=== PATIENT | female | born 1945 | race Two or more races ===

== ENCOUNTER 2017-07-17 15:38 | Day surgery (SDC) | payer MEDICARE, OTHER ==
[2017-07-17] VITALS (8 sets, daily range): BP systolic 115–168; BP diastolic 61–79; PULSE 72–96; RESP 11–19; Ht 154.9 cm; Wt 54.8 kg
[~2017-07-17] VITALS: Ht 154.9 cm; Wt 54.8 kg
[2017-07-17] MEDS ORDERED: ASPI81TA3 PO (16:21)
[2017-07-17] MEDS ORDERED: ZOLP5TAB PO (16:21)
[2017-07-17] MEDS ORDERED: IPRA12.93 INHALATION (16:21)
[2017-07-17] MEDS ORDERED: LOSA25TA5 PO (16:21)
[2017-07-17] MEDS ORDERED: HYDR25TA6 PO (16:21)
[2017-07-17] MEDS ORDERED: LEVO50TA74 PO (16:21)
[2017-07-17] MEDS ORDERED: TRAM50TA2 PO (16:21)
--- NOTE | 2017-07-17 16:33 | RADRPT ---
PROCEDURE: XR Chest. CLINICAL INDICATION: Preoperative. TECHNIQUE: Single frontal view. COMPARISON: None. FINDINGS: There is mild atelectasis at the lung bases. The lungs are otherwise clear. The heart size is normal. There is calcification in the aorta consistent with atherosclerosis. There is no pleural effusion. There is no pneumothorax. IMPRESSION: 1. Mild atelectasis at the lung bases. 2. Atherosclerosis. RPTAT: QQ .Krish Adorno MD, MD Date Time Electronically viewed and signed by .Krish Adorno MD, on 07/17/2017 16:33 .R/
--- NOTE | 2017-07-17 16:52 | HPN ---
Date/Time of Note Date/Time of Note DATE: 07/17/17 TIME: 16:52 Interval H&P Admission Note Pt. seen H&P reviewed: No system changes HARJEET HALL Jul 17, 2017 16:52
[2017-07-17] MEDS ORDERED: POLYMYXIN/BACITRACIN 1L IRRIG ONE (17:42)
[2017-07-17] MEDS ORDERED: BUPIVACAINE 0.5% (SDV) 30 ML INJ ONE (17:43)
[2017-07-17] MEDS ORDERED: CEFAZOLIN 1 GM INJ ONE (17:45)
[2017-07-17] MEDS ORDERED: PROPOFOL 20 ML ONE (17:45)
[2017-07-17] MEDS ORDERED: PHENYLephrine (100 MCG/ML) 5ML SYG ONE (18:03)
[2017-07-17] MEDS ORDERED: EPHEDrine SULFATE 50 MG/5 ML SYG ONE (18:38)
[2017-07-17] MEDS ORDERED: ONDANSETRON 4 MG INJ ONE (18:38)
[2017-07-17] MEDS ORDERED: METOCLOPRAMIDE 10 MG INJ ONE (18:38)
[2017-07-17] MEDS ORDERED: DEXAMETHASONE 4 MG/ML 1 ML INJ ONE (18:38)
[2017-07-17] MEDS ORDERED: KETOROLAC 30 MG INJ ONE (19:12)
[2017-07-17] MEDS ORDERED: ACETAMINOPHEN 1000MG/100ML IV 100 ML ONE (19:13)
--- NOTE | 2017-07-17 19:19 | OPPN ---
Date/Time of Note Date/Time of Note DATE: 07/17/17 TIME: 19:18 Operative Report Preoperative Diagnosis right small and ring finger proximal phalanx intra-articular fractures at MP joint Postoperative Diagnosis right small and ring finger proximal phalanx intra-articular fractures at MP joint Operation/Procedure Performed open reduction internal fixation right small and ring finger proximal phalanx intra-articular fractures at MP joint Surgeon see signature line music assistant none Anesthesia: general Estimated blood loss: 0 - 10 ml's Transfusion Required none Specimen none Grafts/Implants none Complications none HARJEET HALL Jul 17, 2017 19:19
--- NOTE | 2017-07-17 19:19 | OPPN ---
Date/Time of Note Date/Time of Note DATE: 07/17/17 TIME: 19:18 Operative Report Preoperative Diagnosis right small and ring finger proximal phalanx intra-articular fractures at MP joint Postoperative Diagnosis right small and ring finger proximal phalanx intra-articular fractures at MP joint Operation/Procedure Performed open reduction internal fixation right small and ring finger proximal phalanx intra-articular fractures at MP joint Surgeon see signature line assistant women's tennis coach none Anesthesia: general Estimated blood loss: 0 - 10 ml's Transfusion Required none Specimen none Grafts/Implants none Complications none HARJEET HALL Jul 17, 2017 19:19
--- NOTE | 2017-07-17 19:19 | OPPN ---
Date/Time of Note Date/Time of Note DATE: 07/17/17 TIME: 19:18 Operative Report Preoperative Diagnosis right small and ring finger proximal phalanx intra-articular fractures at MP joint Postoperative Diagnosis right small and ring finger proximal phalanx intra-articular fractures at MP joint Operation/Procedure Performed open reduction internal fixation right small and ring finger proximal phalanx intra-articular fractures at MP joint Surgeon see signature line digital sales assistant none Anesthesia: general Estimated blood loss: 0 - 10 ml's Transfusion Required none Specimen none Grafts/Implants none Complications none HARJEET HALL Jul 17, 2017 19:19
[2017-07-17] MEDS ORDERED: BUPIVACAINE 0.5% 30 ML VIAL INJ ONE (19:22)
[2017-07-17] MEDS ORDERED: EPHEDrine SULFATE 50 MG/5 ML SYG IV PRN (19:30)
[2017-07-17] MEDS ORDERED: morphine (1 MG/ML) 10ML SYRINGE IV PRN ×3 (19:30)
[2017-07-17] MEDS ORDERED: FENTAnyl 50 MCG/ML VIAL IV PRN ×3 (19:30)
[2017-07-17] MEDS ORDERED: LABETALOL HCL 20MG INJ IV PRN (19:30)
[2017-07-17] MEDS ORDERED: METOCLOPRAMIDE 10 MG INJ IV PRN (19:30)
[2017-07-17] MEDS ORDERED: DIPHENHYDRAMINE 50 MG INJ IV PRN (19:30)
[2017-07-17] MEDS ORDERED: MEPERIDINE 25 MG INJ IV PRN (19:30)
[2017-07-17] MEDS ORDERED: ONDANSETRON 4 MG INJ IV PRN (19:30)
[2017-07-17] MEDS ORDERED: OXYCODONE/ACETAMINOPHEN (5/325) TAB PO PRN (19:30)
[2017-07-17] MEDS ORDERED: hydrALAzine 20 MG INJ IV PRN (19:30)
[2017-07-17] MEDS ORDERED: HYDROCODONE/APAP (5/325) TAB PO PRN (20:00)
--- NOTE | 2017-07-18 08:11 | OPR ---
DATE OF OPERATION: 07/17/2017 SURGEON: Trav Briones MD ANESTHESIA: General. PREOPERATIVE DIAGNOSES: 1. Right small finger proximal phalanx base fracture, intra- articular at the metacarpophalangeal joint. 2. Right ring finger proximal phalanx fracture, intra-articular at the metacarpophalangeal joint. OPERATIVE PROCEDURE: 1. Open reduction internal fixation, right small finger proximal phalanx base fracture, intra-articular at the metacarpophalangeal joint. 2. Open reduction internal fixation, right ring finger proximal phalanx fracture, intra-articular at the metacarpophalangeal joint. OPERATIVE FINDINGS AT SURGERY: Comminuted displaced proximal phalanx fractures with early callus formation and inability to reduce in a closed manner. INDICATIONS FOR PROCEDURE: A 72-year-old female with injury to the right hand. She was seen in clinic and diagnosed with displaced fractures with significant deformity at the right small and ring fingers. Options were discussed and she elected to proceed with surgical intervention, understanding the risks and benefits. OPERATIVE PROCEDURE: The patient was seen in the preoperative area and all further questions were answered. Again, she gave informed consent, understanding the risks and benefits. She was taken to the operative suite and placed in supine position. She was placed under general anesthesia and tourniquet placed on right upper extremity. Right upper extremity was prepped with ChloraPrep stick and draped in usual sterile fashion. Two grams of Ancef IV was given. Esmarch bandage was used to exsanguinate the extremity and tourniquet inflated to 250 mmHg. Attempt was made at closed reduction of the fractures under fluoroscopic imaging, but due to the subacute nature of the injuries, as it has been almost 1 month, I was unable to accomplish a closed reduction. Decision was made to convert to open reduction internal fixation. Attention was first turned to the ring finger and a dorsal longitudinal incision over the shaft of the proximal phalanx was utilized with sharp dissection carried down through skin and subcutaneous tissue. The extensor tendon was incised along the midline and the fracture was identified. The fracture was reduced with a [place] elevator by freeing up the callus formation which had already been occurring. The fracture was reduced and two 0.035 K-wires and a 0.028 K-wire were driven antegrade across the fracture site to secure the fracture fragments. Overall alignment of the digit was less than 5 degrees of angulation and there was some mild translation; however, further improvement in that would have required plate and screw fixation which was less desirable than the current construct. Due to the acceptable alignment of the digit, attention was then turned to the small finger and a dorsal longitudinal incision was made approximately 1 cm. Sharp dissection was carried down through skin and subcutaneous tissue. Fracture site identified and a [place] elevator was used to free up the fracture fragments and reduce the fracture. Two 0.035 K- wires were driven antegrade across the fracture site. Final x- ray imaging showed appropriate hardware placement and bony alignment. The cascade of the digits appeared symmetric with the contralateral side. There was significant improvement in the preoperative deformity. Wounds were copiously irrigated. Skin closed with 5-0 nylon. Pins were cut short and pin caps placed. Xeroform placed over the wounds, followed by sterile gauze, [place], and a short-arm ulnar gutter splint. The patient was awakened from anesthesia and taken to the postoperative suite in stable condition. Tolerated the procedure well with no complications. SPECIMENS: None. ESTIMATED BLOOD LOSS: 5 mL. COUNTS: Sponge, instrument and needle counts correct. TOURNIQUET TIME: 55 minutes. FLUOROSCOPIC IMAGES: 30. Dictated By: Trav Briones MD /chalino/irlanda /Document#: [id number] RANDY
--- NOTE | 2017-07-18 11:31 | RADRPT ---
PROCEDURE: Intraoperative imaging of the right hand with fluoroscopy. CLINICAL INDICATION: Right hand pain. Fracture. Intraoperative. TECHNIQUE: 22 images of the right hand were obtained in the operating room with an image intensifi er. No radiologist was in attendance. Fluoroscopy time is 3.4 minutes. COMPARISON: No prior study is available for comparison. FINDINGS: Images demonstrate open reduction and internal fixation of the fractures of the right fourth and fif th fingers. IMPRESSION: 1. Intraoperative imaging of the right hand. RPTAT: QQ .Krish Adorno MD, MD Date Time Electronically viewed and signed by .Krish Adorno MD, on 07/18/2017 11:31 .R/
--- NOTE | 2017-07-18 13:46 | RADRPT ---
Vent Rate: 79 bpm RR Interval: 0 msec [place] Interval: 148 msec QRS Duration: 94 msec QT Interval: 438 msec QTC Interval: 502 msec P-R-T [place]: 70 - 56 - 40 degrees Sinus rhythm with marked sinus arrhythmia with occasional premature ventricular complexes Incomplete right bundle branch block Prolonged QT Abnormal ECG Electronically Signed By: Rg Sapp [id number]
--- NOTE | 2017-07-18 13:46 | RADRPT ---
Vent Rate: 79 bpm RR Interval: 0 msec [place] Interval: 148 msec QRS Duration: 94 msec QT Interval: 438 msec QTC Interval: 502 msec P-R-T [place]: 70 - 56 - 40 degrees Sinus rhythm with marked sinus arrhythmia with occasional premature ventricular complexes Incomplete right bundle branch block Prolonged QT Abnormal ECG Electronically Signed By: Rg Sapp [id number]
--- NOTE | 2017-07-18 13:46 | RADRPT ---
Vent Rate: 79 bpm RR Interval: 0 msec [place] Interval: 148 msec QRS Duration: 94 msec QT Interval: 438 msec QTC Interval: 502 msec P-R-T [place]: 70 - 56 - 40 degrees Sinus rhythm with marked sinus arrhythmia with occasional premature ventricular complexes Incomplete right bundle branch block Prolonged QT Abnormal ECG Electronically Signed By: Rg Sapp [id number]
== END 2017-07-17 21:03 | disposition home or self-care (01) ==
LOC: SDS 15:38
PROVIDERS: ATTEND Orthopaedic Surgery Hand Surgery
DX: S62.616D Displaced fracture of proximal phalanx of right little finger, subsequent encounter for fracture with routine healing (principal); S62.614D Displaced fracture of proximal phalanx of right ring finger, subsequent encounter for fracture with routine healing; X58.XXXD Exposure to other specified factors, subsequent encounter; I10 Essential (primary) hypertension; E03.9 Hypothyroidism, unspecified; E78.5 Hyperlipidemia, unspecified
CPT/HCPCS: 26735; 71010; 73140; 93005; C1713; J0131; J0690; J1100; J1885; J2370; J2405; J2765; J3010